=== PATIENT | female | born 1990 | race Caucasian/White ===

== ENCOUNTER → 2020-11-21 | Day surgery (SDC) | payer OTHER ==
[2020-11-21 09:41] VITALS: RESP 16
[2020-11-21 12:18] VITALS: BP 112/72; PULSE 56; TEMP 98.1
--- NOTE | 2020-11-21 19:43 | USB ---
EXAMINATION TYPE: US biopsy breast VAD RT, US biopsy breast VAD LT US biopsy breast add'l VAD LT DATE OF EXAM: 11/21/2020 CLINICAL HISTORY: 30-year-old female R92.8 Abnormal Mammogram. TECHNIQUE: Ultrasound guided core biopsy of the bilateral breasts. COMPARISON: 07/23/2020 FINDINGS: The procedure of ultrasound guided core biopsy was explained to the patient. Benefits, alt ernatives, and risks were discussed. An informed consent was then obtained. The patient's prior ultrasound is reviewed. Multiple lesions are present most of which represent cyst s. The 10:00 dominant hypoechoic lesion in the right breast is targeted. Subsequently, the mixed lesion in the 2:00 left breast is targeted. Finally, the round hypoechoic lesion at the 11:00 position in the left breast is targeted. The patient was placed in supine positioning for imaging and for the procedure. The overlying skin w as prepped and draped in usual sterile fashion. Lidocaine was used as anesthetic into the skin and s ubcutaneous tissue up to area of concern in each breast internal. SITE 1: RIGHT 10:00, hypoechoic: Under ultrasound guidance, a 13-gauge vacuum-assisted Mammotome Emma te biopsy gun was used to obtain 2 core samples. The lesion collapsed after the first sampling. This favors a benign debris-filled cyst. Following this, a ribbon clip was left at the site of biopsy. SITE 2: LEFT 2:00, mixed solid cystic: Under ultrasound guidance, a 13-gauge vacuum-assisted Mammotom e Elite biopsy gun was used to obtain 4 core samples. This also collapsed after the first sampling. Following this, a wing clip was left at the site of biopsy. SITE 3: LEFT 11:00, hypoechoic: Under ultrasound guidance, a 13-gauge vacuum-assisted Mammotome Elit e biopsy gun was used to obtain 4 core samples. This last lesion also collapsed after the first sampl ing. Following this, a coil clip was left at the site of biopsy. The patient tolerated the procedure well without any immediate complication. The patient was kept in the radiology department for short stay after the procedure and then discharged home in stable condi tion. Given the apparent cystic nature of all of these lesions and the patient's young age, post biopsy tony mograms are deferred. IMPRESSION: Successful, uncomplicated ultrasound guided core biopsy of the dominant bilateral hypoechoic lesions. Debris-filled cysts are suggested since the lesions collapsed after the first sampling. One site in the right breast in 2 sites in the left breast. Full pathology results to follow. If benign results, six-month follow-up ultrasound can be performed. Routine screening should begin at 40 years of age unless there is a clinical indication to start sooner.
== END ==
LOC: RADUSWWP 09:26
PROVIDERS: ATTEND Surgery
DX: N60.02 Solitary cyst of left breast (principal); N60.01 Solitary cyst of right breast
CPT/HCPCS: 88305; 88342; 88341; 19083 ×2; 19084; A4648; J2001

== ENCOUNTER → 2021-07-03 | Outpatient (CLI) | payer OTHER ==
--- NOTE | 2021-07-03 21:11 | US ---
EXAMINATION TYPE: Transabdominal DATE OF EXAM: 07/03/2021 9:27 AM COMPARISON: NONE CLINICAL HISTORY: Z36.89 CONFIRM GESTATIONAL AGE AND VIABILITY. Viability. No pain, no bleeding. Hx 1 C section. . EXAM PERFORMED: Transabdominal (TA) EXAM MEASUREMENTS: GESTATIONAL AGE / DATING Physician Established: Not yet established. Dates by LMP: (11 weeks/6 days) EDC: 01/16/2022 Dates by First Scan: This is first scan Dates by Current Scan for: (12 weeks/3 days) EDC: 01/12/2022 MATERNAL ANATOMY Uterus: 13.7 x 10.4 x 7.5 cm. Anteverted. Right Ovary: 2.3 x 1.7 x 1.5 cm. Left Ovary: 2.7 x 2.3 x 2.1 c.m. Two anechoic areas seen, larger area seen measures: 1.2 x 1.2 x 1.2 cm. Post CDS / Adnexa: Appear wnl Presence of free fluid: None seen. Presence of corpus luteal cyst: Possible within left ovary, two anechoic areas seen as mentioned abov e. Presence of subchorionic bleed: Complex area seen inferior to gestational sac: 0.7 x 1.9 x 1.6 cm. GESTATION / SURVEY CRL: 5.90 (12 weeks/3 days) Yolk Sac (normal less than 6mm): 6.5 mm. Measures enlarged. Heart Rate: 159 bpm Rhythm: Normal IUP: Viable IUP Nuchal Translucency 10-14wks (normal less than 3mm): Not well seen. Age Appropriate Anatomy Cord Insertion: Not well seen Limbs: Limited due to movement Calvarium: Limited due to movement Date of LMP: 04/11/2021 IMPRESSION: 1. Single intrauterine gestation estimated at 12 weeks 3 days gestation based on crown-rump length. C ardiac activity measures 159 bpm. 2. Note is made of a somewhat large yolk sac during this exam. Close follow-up is recommended. 3. Small subchorionic hemorrhage adjacent to the gestational sac.
== END | disposition home or self-care (01) ==
LOC: RADUSWWP 08:49
PROVIDERS: ATTEND Obstetrics & Gynecology
DX: O20.8 Other hemorrhage in early pregnancy (principal); Z3A.12 12 weeks gestation of pregnancy
CPT/HCPCS: 76801

== ENCOUNTER 2022-01-09 09:46 | Outpatient (CLI) | payer OTHER ==
[2022-01-09 10:50] VITALS: BP 120/77; PULSE 92; RESP 18; TEMP 97.2
--- NOTE | 2022-02-01 07:17 | P.MSEPDOC ---
Presenting Problems - Arrival Data Date of Arrival on Unit: 01/09/22 Time of Arrival on Unit: 09:46 Mode of Transport: Ambulatory - Complaint OB-Reason for Admission/Chief Complaint: Pain Comment: Contractions last night, feeling better today. 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 Review of Systems - Review of Systems Constitutional: No problems Breast: No problems ENT: No problems Cardiovascular: No problems Respiratory: No problems Gastrointestinal: No problems Genitourinary: No problems Musculoskeletal: No problems Neurological: No problems Skin: No problems Vital Signs - Temperature Temperature: 97.2 F Temperature Source: Temporal Artery Scan - Pulse Right Sitting Brachial Pulse Rate: 92 Pulse Assessment Method: Automatic Cuff - Respirations Respiratory Rate: 18 Oxygen Delivery Method: Room Air O2 Sat by Pulse Oximetry: 99 - Blood Pressure Right Arm Sitting Blood Pressure: 120/77 Blood Pressure Mean: 91 Blood Pressure Source: Automatic Cuff Medical Screen Scoring - Cervical Exam Dilation (cm): 0 Effacement (%): 50 Station: -3 - Assessment - Baby A Baseline FHR: 130 Heart Rate - NICHD Category: Category I (Normal) NST: Reactive Physician Notification - Physician Notified Physician Notified Date: 01/09/22 Physician Notified Time: 10:45 Physician: Humble Maloney New Order Received: Yes - Notification Comment Comment: Dc home. Pt to follow up with Dr Vasquez as scheduled. Maternal Triage Index - Maternal Triage Index Presenting for scheduled procedure w/no complaint: No - Stat/Priority 1 Stat Priority 1: No - Urgent/Priority 2 Urgent Priority 2: No - Prompt/Priority 3 Prompt Priority 3: No - Non-Urgent/Priority 4 Non-Urgent Priority 4: Yes Criteria Met for Priority 4: Amnisure neg, cervix closed. Irregular contractions, pt denies pain today - resolved since last night. Disposition - Disposition OB Disposition: Discharge to home Discharge Date: 01/09/22 Discharge Time: 10:49 I agree with the RN Medical Screening Exam: Yes Case reviewed; plan agreed upon as documented in EMR&OBIX.: Yes Diagnosis: FALSE LABOR AT OR AFTER 37 COMPLETED WEEKS OF GESTATION
== END 2022-01-09 10:51 | disposition home or self-care (01) ==
LOC: FBPOP 09:46
PROVIDERS: ATTEND Obstetrics & Gynecology
DX: O47.1 False labor at or after 37 completed weeks of gestation (principal); Z3A.39 39 weeks gestation of pregnancy; Z88.0 Allergy status to penicillin
CPT/HCPCS: 59025; 84112; G0463; 99213

== ENCOUNTER 2022-01-13 10:01 | Inpatient (IN) | payer OTHER ==
[2022-01-13] MEDS ORDERED: ONDANSETRON 4 MG/2 ML VIAL IVP PRN (10:28)
[2022-01-13] MEDS ORDERED: CITRIC ACID-SODIUM CITRATE 15 ML CUP PO ONE (10:28)
[2022-01-13] MEDS ORDERED: METOCLOPRAMIDE 5 MG/ML 2 ML VIAL IVP PRN (10:28)
[2022-01-13] MEDS ORDERED: diphenhydrAMINE 25 MG CAP PO PRN (10:28)
[2022-01-13] MEDS ORDERED: diphenhydrAMINE 50 MG CAP PO PRN (10:28)
[2022-01-13] MEDS ORDERED: ZOLPIDEM 5 MG TAB PO PRN (10:28)
[2022-01-13] MEDS ORDERED: NALOXONE 0.4 MG/ML 1 ML VIAL IV PRN ×2 (10:28→12:23)
[2022-01-13] MEDS ORDERED: diphenhydrAMINE 50 MG/ML 1 ML VIAL IVP PRN ×2 (10:28)
[2022-01-13 11:18] LABS: Basophils % (A) 1 %; Eosinophils # (A) 0.2 k/uL (0-0.7); Eosinophils % (A) 2 %; HCT 31.2 % (34.0-46.0); HGB 11.3 gm/dL (11.4-16.0); Lymphocytes # (A) 1.3 k/uL (1.0-4.8); Lymphocytes % (A) 16 %; MCH 34.2 pg (25.0-35.0); MCHC 36.1 g/dL (31.0-37.0); MCV 94.8 fL (80.0-100.0); Mean Platelet Volume 8.5; Monocytes # (A) 0.4 k/uL (0-1.0); Monocytes % (A) 4 %; Neutrophils # (A) 6.1 k/uL (1.3-7.7); Neutrophils % (A) 75 %; Platelet Count 307 k/uL (150-450); RBC 3.29 m/uL (3.80-5.40); RDW 13.2 % (11.5-15.5); WBC 8.2 k/uL (3.8-10.6)
[2022-01-13] MEDS: LACTATED RINGERS 1,000 ML IV SCH (11:27)
[2022-01-13] MEDS ORDERED: NALBUPHINE 10 MG/ML (1 ML AMP) ONE (12:00)
[2022-01-13] MEDS ORDERED: ePHEDrine 50 MG/ML 1 ML VIAL ONE (12:00)
[2022-01-13] MEDS ORDERED: ONDANSETRON 4 MG/2 ML VIAL ONE (12:00)
[2022-01-13] MEDS ORDERED: MORPHINE SULFATE (PF) 0.3 MG/0.3 ML SYR ONE (12:00)
[2022-01-13] MEDS ORDERED: OXYTOCIN 30 UNITS/500 ML NS BAG IV ONE (12:00)
[2022-01-13] MEDS ORDERED: KETOROLAC 15 MG/ML 1 ML VIAL ONE (12:00)
[2022-01-13] MEDS ORDERED: HYDROmorphone 0.5 MG/0.5 ML SYRINGE IVP PRN (12:23)
--- NOTE | 2022-01-13 12:40 | P.HPOB ---
History of Present Illness H&P Date: 01/13/22 Chief Complaint: repeat low transverse with tubal ligation 32 year old presents at 39 weeks and 4 days for a repeat low transverse C- section with tubal ligation. Patient has been on Lovenox and then heparin for the last few weeks for history of blood clot and MTHFR. Review of Systems All systems: negative Constitutional: Denies chills, Denies fever Eyes: denies blurred vision, denies pain Ears, nose, mouth and throat: Denies headache, Denies sore throat Cardiovascular: Denies chest pain, Denies shortness of breath Respiratory: Denies cough Gastrointestinal: Denies abdominal pain, Denies diarrhea, Denies nausea, Denies vomiting Genitourinary: Denies dysuria, Denies hematuria Musculoskeletal: Denies myalgias Integumentary: Denies pruritus, Denies rash Neurological: Denies numbness, Denies weakness Psychiatric: Denies anxiety, Denies depression Endocrine: Denies fatigue, Denies weight change Past Medical History Past Medical History: No Reported History History of Any Multi-Drug Resistant Organisms: None Reported Past Surgical History: Section Additional Past Surgical History / Comment(s): 10/02/2018 Past Anesthesia/Blood Transfusion Reactions: No Reported Reaction Past Psychological History: No Psychological Hx Reported Smoking Status: Former smoker Past Alcohol Use History: None Reported Past Drug Use History: None Reported - Past Family History Mother Family Medical History: Hyperlipidemia, Hypertension Medications and Allergies Home Medications Medication Instructions Recorded Confirmed Type Heparin Sodium,Porcine [Heparin 50 milliunit SQ BID 01/09/22 01/13/22 History Sodium] Vit No.179/Iron/Folic 1 tab PO DAILY 01/09/22 01/13/22 History [ Tablet] Allergies Allergy/AdvReac Type Severity Reaction Status Date / Time Penicillins Allergy Unknown Verified 01/09/22 09:59 Childhood Exam Osteopathic Statement: *. No significant issues noted on an osteopathic structural exam other than those noted in the History and Physical/Consult. Vital Signs Temp Pulse Resp BP Pulse Ox 01/13/22 10:21 98.5 F 64 16 133/76 98 Intake and Output 01/12/22 01/13/22 01/13/22 22:59 06:59 14:59 Other: Weight 81.193 kg Heart: Regular rate and rhythm Lungs: Clear to auscultation bilaterally Abdomen: Soft, nontender Extremities: Negative Homans sign Results Result Diagrams: 01/13/22 10:50 Abnormal Lab Results - Last 24 Hours (Table) 01/13/22 Range/Units 10:50 RBC 3.29 L (3.80-5.40) m/uL Hgb 11.3 L (11.4-16.0) gm/dL Hct 31.2 L (34.0-46.0) % Assessment and Plan (1) Previous section Current Visit: Yes Status: Acute Code(s): Z98.891 - HISTORY OF UTERINE SCAR FROM PREVIOUS SURGERY SNOMED Code(s): 821123811 (2) History of DVT (deep vein thrombosis) Current Visit: Yes Status: Acute Code(s): Z86.718 - PERSONAL HISTORY OF OTHER VENOUS THROMBOSIS AND EMBOLISM SNOMED Code(s): 123564540 (3) Family planning Current Visit: Yes Status: Acute Code(s): Z30.09 - ENCOUNTER FOR OT GENERAL CNSL AND ADVICE ON CONTRACEPTION SNOMED Code(s): 157167759 Plan: 1. Repeat low transverse with tubal ligation. We will use SCDs today and put her back on her Lovenox tomorrow.
--- NOTE | 2022-01-13 12:43 | P.OP ---
Date of Procedure: 01/13/22 Preoperative Diagnosis: 1. at 39 weeks and 4 days 2. Previous section 3. Family planning Postoperative Diagnosis: 1. at 39 weeks and 4 days 2. Previous section 3. Family planning Procedure(s) Performed: Repeat low transverse with tubal ligation Anesthesia: THOMPSON Surgeon: Kim Vasquez [employer] Signal [employer] Switch Operator #1: Humble Maloney Estimated Blood Loss (ml): 640 IV fluids (ml): 1,000 Urine output (ml): 100 Pathology: other (Segments of bilateral fallopian tubes) Condition: stable Disposition: floor Operative Findings: Viable female, Apgars 9, 9, weight 7 lbs. 8 oz. Normal uterus, tubes, ovaries Description of Procedure: Patient was taken to the operating room where spinal anesthesia was found be adequate. She was prepped and draped in normal sterile fashion in dorsal supine position with a leftward tilt. Pfannenstiel skin incision was made the scalpel and carried through to the underlying layer of fascia with the scalpel. Fascia was incised in midline and carried bilaterally with the Wright scissors. The superior aspect of the fascial incision was grasped with Prashant clamps elevated and the underlying rectus muscles dissected off with the Wright's. Attention was then turned to inferior aspect of same incision which in a similar fashion was grasped tented up and the underlying rectus muscles dissected off with the Wright's. The rectus muscles were the midline and the peritoneum was identified tented up and entered sharply with the scalpel. The incision was extended superiorly and inferiorly with good visualization of the bladder. The bladder blade was inserted and the vesicouterine peritoneum was incised the Metzenbaums then carried bilaterally and bladder flap created digitally. A low transverse incision was then made on the uterus with the scalpel. This was carried bilaterally and digital manner. Infant's head delivered atraumatically, nose and mouth bulb suctioned, cord clamped and cut, handed off to waiting nurses. Apgars 9,9, weight 7 lbs. 8 oz. Placenta delivered manually, intact with three-vessel cord. The uterus is exteriorized and cleared of all clots and debris. The uterine incision was closed with 0 Vicryl in a running locked fashion. The left fallopian tube was grasped with a hemostat and a window was made in the mesosalpinx with the Bovie. This fallopian tube was doubly ligated, segment was removed and the pedicles were cauterized with the Bovie. The right fallopian tube was grasped with a hemostat and a window was made in the mesosalpinx with the Bovie. This fallopian tube was doubly ligated, segment was removed and the pedicles were cauterized with the Bovie. Both ovaries and tubes appeared normal. The uterus was placed back into the abdomen. The peritoneum was reapproximated using 2-0 Vicryl in a running fashion. The muscles were reapproximated using 2-0 Vicryl in interrupted fashion. The fascia was reapproximated using 0 Vicryl in a running fashion. The subcutaneous tissues closed with 3-0 Vicryl running fashion. The skin was closed gertrudis. Patient tolerated the procedure well, sponge and instrument counts were correct times 2 and she was taken to the recovery room in stable condition.
[2022-01-13] MEDS: KETOROLAC 15 MG/ML 1 ML VIAL IVP PRN (18:33)
[2022-01-14] MEDS: SENNOSIDES-DOCUSATE SODIUM 1 EACH TAB PO SCH ×3 (02:39→19:34)
[2022-01-14] MEDS: LACTATED RINGERS 1,000 ML IV SCH ×3 (02:39→20:31)
--- NOTE | 2022-01-14 06:34 | P.PN ---
Progress Note - Text Progress Note Date: 01/14/22 POD 1 c section with duramorph spinal. Doing well, pain 03/11. no pruritis, able to ambulate, micturate and passing gas. no lower ext weakness. doing well.
[2022-01-14] MEDS: KETOROLAC 15 MG/ML 1 ML VIAL IVP PRN (07:49)
--- NOTE | 2022-01-14 08:36 | P.PNOBGPC ---
Subjective - Subjective Principal diagnosis: Status post repeat low transverse postop day 1 Interval history: Patient seen and examined. Denies nausea, vomiting, chest pain, shortness of breath or calf pain. Patient reports: Reports appetite normal, Reports voiding normally, Reports pain well controlled, Reports ambulating normally : doing well Objective - Vital Signs Latest vital signs: Vital Signs Temp Pulse Resp BP Pulse Ox 01/14/22 07:53 98.4 F 68 16 114/70 97 01/14/22 04:00 97.9 F 64 16 133/74 98 01/14/22 00:00 97.7 F 72 16 132/82 98 01/13/22 20:00 97.8 F 69 16 127/79 99 01/13/22 17:00 16 01/13/22 16:00 97.2 F L 74 16 141/76 01/13/22 15:23 16 01/13/22 14:40 72 16 127/75 98 01/13/22 14:10 71 16 122/73 98 01/13/22 13:40 64 16 135/73 98 01/13/22 13:25 71 16 135/73 97 01/13/22 13:13 97 01/13/22 13:12 16 97 01/13/22 13:10 73 16 116/69 97 01/13/22 12:55 76 16 124/75 98 01/13/22 12:40 96.8 F L 73 16 117/71 98 01/13/22 10:21 98.5 F 64 16 133/76 98 Intake and Output 01/13/22 01/14/22 01/14/22 22:59 06:59 14:59 Intake Total 500 Output Total 700 Balance 500 -700 Intake: IV 500 Output: Urine 700 Uretheral ([place]) 400 Other: Voiding Method Indwelling Catheter - Exam Lungs: bilateral: normal Chest: Normal S1, Normal S2 Extremities: Present: normal Abdomen: Present: normal appearance, soft. Absent: distention, tenderness Incision: Present: normal, dry, intact Uterus: Present: normal, firm - Labs Labs: Abnormal Lab Results - Last 24 Hours (Table) 01/13/22 Range/Units 10:50 RBC 3.29 L (3.80-5.40) m/uL Hgb 11.3 L (11.4-16.0) gm/dL Hct 31.2 L (34.0-46.0) % Assessment and Plan (1) Previous section Current Visit: Yes Status: Resolved Code(s): Z98.891 - HISTORY OF UTERINE SCAR FROM PREVIOUS SURGERY SNOMED Code(s): 874658537 (2) History of DVT (deep vein thrombosis) Current Visit: Yes Status: Resolved Code(s): Z86.718 - PERSONAL HISTORY OF O THER VENOUS THROMBOSIS AND EMBOLISM SNOMED Code(s): 199397487 (3) Family planning Current Visit: Yes Status: Resolved Code(s): Z30.09 - ENCOUNTER FOR OT GENERAL CNSL AND ADVICE ON CONTRACEPTION SNOMED Code(s): 162823264 Plan: 1. Increase ambulation 2. Oral pain meds
[2022-01-14 08:46] LABS: Basophils % (A) 0 %; Eosinophils # (A) 0.1 k/uL (0-0.7); Eosinophils % (A) 1 %; HGB 10.2 gm/dL (11.4-16.0); Lymphocytes # (A) 1.3 k/uL (1.0-4.8); Lymphocytes % (A) 11 %; MCH 34.2 pg (25.0-35.0); MCHC 36.2 g/dL (31.0-37.0); MCV 94.5 fL (80.0-100.0); Mean Platelet Volume 9.2; Monocytes # (A) 0.5 k/uL (0-1.0); Monocytes % (A) 4 %; Neutrophils # (A) 9.7 k/uL (1.3-7.7); Neutrophils % (A) 82 %; Platelet Count 274 k/uL (150-450); RBC 2.96 m/uL (3.80-5.40); RDW 13.2 % (11.5-15.5); WBC 11.8 k/uL (3.8-10.6)
[2022-01-14] MEDS: ACETAMINOPHEN TAB 500 MG TAB PO SCH ×2 (12:56→19:33)
[2022-01-14] MEDS: IBUPROFEN 600 MG TAB PO SCH (15:46)
[2022-01-14] MEDS: SIMETHICONE 80 MG CHEWABLE PO SCH (17:21)
[2022-01-14 19:41] VITALS: RESP 16
[2022-01-15] MEDS: SIMETHICONE 80 MG CHEWABLE PO SCH ×3 (01:51→08:04)
[2022-01-15] MEDS: ACETAMINOPHEN TAB 500 MG TAB PO SCH ×2 (01:51→06:29)
[2022-01-15] MEDS: IBUPROFEN 600 MG TAB PO SCH ×3 (01:52→08:04)
[2022-01-15 02:00] VITALS: PULSE 63
[2022-01-15] MEDS: SENNOSIDES-DOCUSATE SODIUM 1 EACH TAB PO SCH (08:04)
[2022-01-15 08:10] VITALS: BP 124/75; TEMP 97.9
--- NOTE | 2022-01-15 08:35 | P.DS ---
Providers Date of admission: 01/13/22 10:01 Expected date of discharge: 01/15/22 Attending physician: Kim Vasquez Primary care physician: Stated None - Discharge Diagnosis(es) (1) Previous section Current Visit: Yes Status: Resolved (2) History of DVT (deep vein thrombosis) Current Visit: Yes Status: Resolved (3) Family planning Current Visit: Yes Status: Resolved (4) S/P repeat low transverse Current Visit: Yes Status: Acute (5) Status post tubal ligation at time of delivery, current hosp Current Visit: Yes Status: Acute Hospital Course: Patient presented for repeat low transverse and tubal ligation. She underwent this procedure without complication. Postoperative course was uneventful. She denies nausea, vomiting, chest pain, shortness of breath or any calf pain. Patient will be discharged home postoperative day #2 in stable condi tion on Lovenox to follow-up with me in one week. Plan - Discharge Summary New Discharge Prescriptions: New Enoxaparin [Lovenox] 40 mg SQ DAILY #30 each Ibuprofen [Motrin] 600 mg PO Q6H #30 tab oxyCODONE HCL [OxyIR] 5 mg PO Q4HR PRN #18 tab PRN Reason: Pain Scale 4 - 6 No Action Heparin Sodium,Porcine [Heparin Sodium] 50 milliunit SQ BID Vit No.179/Iron/Folic [ Tablet] 1 tab PO DAILY Discharge Medication List Heparin Sodium,Porcine [Heparin Sodium] 50 milliunit SQ BID 01/09/22 [History] Vit No.179/Iron/Folic [ Tablet] 1 tab PO DAILY 01/09/22 [History] Enoxaparin [Lovenox] 40 mg SQ DAILY #30 each 01/15/22 [Rx] Ibuprofen [Motrin] 600 mg PO Q6H #30 tab 01/15/22 [Rx] oxyCODONE HCL [OxyIR] 5 mg PO Q4HR PRN #18 tab 01/15/22 [Rx] Follow up Appointment(s)/Referral(s): Kim Vasquez DO [Doctor of Osteopathic Medicine] - 01/20/22 10:45 am (PP 02/27/2022 @1045) Discharge Disposition: HOME SELF-CARE
== END 2022-01-15 11:00 | disposition home or self-care (01) | DRG 785 ==
LOC: 4FBP 10:01
PROVIDERS: ADMIT Obstetrics & Gynecology; ATTEND Obstetrics & Gynecology
PROC: 0UB70ZZ Excision of Bilateral Fallopian Tubes, Open Approach (ICD-10-PCS; 2022-01-13)
PROC: 10D00Z1 Extraction of Products of Conception, Low, Open Approach (ICD-10-PCS; principal; 2022-01-13 12:00)
DX: O34.211 Maternal care for low transverse scar from previous cesarean delivery (principal); Z30.2 Encounter for sterilization; Z37.0 Single live birth; Z3A.39 39 weeks gestation of pregnancy; Z86.718 Personal history of other venous thrombosis and embolism; Z87.891 Personal history of nicotine dependence; Z14.8 Genetic carrier of other disease; Z88.0 Allergy status to penicillin
CPT/HCPCS: 85025; 86850; 86900; 86901; 88302

== ENCOUNTER 2022-01-19 09:28 | Inpatient (IN) | payer OTHER ==
[2022-01-19 10:05] LABS: Basophils % (A) 1 %; Eosinophils # (A) 0.2 k/uL (0-0.7); Eosinophils % (A) 4 %; HCT 33.2 % (34.0-46.0); HGB 11.3 gm/dL (11.4-16.0); Lymphocytes # (A) 1.5 k/uL (1.0-4.8); Lymphocytes % (A) 23 %; MCH 32.7 pg (25.0-35.0); MCHC 34.1 g/dL (31.0-37.0); MCV 95.7 fL (80.0-100.0); Mean Platelet Volume 8.4; Monocytes # (A) 0.3 k/uL (0-1.0); Monocytes % (A) 5 %; Neutrophils # (A) 4.2 k/uL (1.3-7.7); Neutrophils % (A) 65 %; Platelet Count 383 k/uL (150-450); RBC 3.47 m/uL (3.80-5.40); WBC 6.5 k/uL (3.8-10.6)
[2022-01-19 10:14] LABS: ALT 26 U/L (4-34); AST 29 U/L (14-36); African American GFR (CKD) >90 (>60 ml/min/1.73 sqM); Blood Urea Nitrogen 11 mg/dL (7-17); LDH 826 U/L (313-618); Non-African American GFR(CKD) >90 (>60 ml/min/1.73 sqM)
[2022-01-19 10:15] LABS: Appearance,Urine Clear (Clear); Bilirubin,Urine Negative (Negative); Blood,Urine Negative (Negative); Color,Urine Light Yellow; Glucose,Urine (UA) Negative (Negative); Ketones,Urine Negative (Negative); Leukocyte Esterase,Urine Negative (Negative); Nitrite,Urine Negative (Negative); PH, Urine 7.5 (5.0-8.0); Protein,Urine Trace (Negative); Specific Gravity,Urine 1.009 (1.001-1.035); Urobilinogen,Urine <2.0 mg/dL (<2.0)
[2022-01-19 10:25] LABS: Creatinine,Urine Random 61.5 mg/dL; Protein/Creatinine Ratio,Urine 0.439
[2022-01-19] MEDS ORDERED: CALCIUM GLUCONATE 1 GM/10 ML VIAL IV PRN (10:52)
[2022-01-19] MEDS ORDERED: MAGNESIUM SULFATE-WATER PMX 4 GM in WATER FOR INJECTION 1 100ML.BAG IVPB ONE (11:15)
[2022-01-19] MEDS: LACTATED RINGERS 1,000 ML IV SCH (11:24)
[2022-01-19] MEDS: MAGNESIUM SULFATE-WATER PMX 20 GM in WATER FOR INJECTION 1 500ML.BAG IV SCH ×2 (11:30→21:42)
[2022-01-19] MEDS: IBUPROFEN 600 MG TAB PO PRN (16:03)
--- NOTE | 2022-01-19 16:08 | P.HPOB ---
History of Present Illness H&P Date: 01/19/22 Chief Complaint: Headache 32 year old presents 6 days after a repeat low transverse . She is complaining of a headache for the last 2 days. The headache is occipital, no blurred vision, did have some RUQ pain yesterday. Upon presentation her BP is elevated. She also has an elevated PC ratio, and LDH. Review of Systems All systems: negative Constitutional: Denies chills, Denies fever Eyes: denies blurred vision, denies pain Ears, nose, mouth and throat: Reports headache, Denies sore throat Cardiovascular: Denies chest pain, Denies shortness of breath Respiratory: Denies cough Gastrointestinal: Denies abdominal pain, Denies diarrhea, Denies nausea, Denies vomiting Genitourinary: Denies dysuria, Denies hematuria Musculoskeletal: Denies myalgias Integumentary: Denies pruritus, Denies rash Neurological: Denies numbness, Denies weakness Psychiatric: Denies anxiety, Denies depression Endocrine: Denies fatigue, Denies weight change Past Medical History Past Medical History: No Reported History History of Any Multi-Drug Resistant Organisms: None Reported Past Surgical History: Section Additional Past Surgical History / Comment(s): 10/02/2018 Past Anesthesia/Blood Transfusion Reactions: No Reported Reaction Smoking Status: Never smoker - Past Family History Mother Family Medical History: Hyperlipidemia, Hypertension Medications and Allergies Home Medications Medication Instructions Recorded Confirmed Type Enoxaparin [Lovenox] 40 mg SQ DAILY #30 each 01/15/22 01/19/22 Rx Ibuprofen [Motrin] 600 mg PO Q6H #30 tab 01/15/22 01/19/22 Rx Allergies Allergy/AdvReac Type Severity Reaction Status Date / Time Penicillins Allergy Unknown Verified 01/19/22 09:43 Childhood Exam Osteopathic Statement: *. No significant issues noted on an osteopathic structural exam other than those noted in the History and Physical/Consult. Vital Signs Temp Pulse Resp BP Pulse Ox 01/19/22 15:00 97.7 F 49 L 18 136/79 97 01/19/22 14:00 56 L 16 133/91 99 01/19/22 13:00 45 L 16 142/72 100 01/19/22 11:55 46 L 151/88 01/19/22 11:40 43 L 157/90 01/19/22 11:25 43 L 16 150/85 99 01/19/22 11:21 40 L 01/19/22 11:10 38 L 16 159/86 100 01/19/22 10:47 97.6 F 39 L 16 159/86 99 Intake and Output 01/19/22 01/19/22 01/19/22 06:59 14:59 22:59 Output Total 800 525 Balance -800 -525 Output: Urine 800 525 Other: Weight 79.651 kg HEart: RRR Lungs: CTAB Abdomen: soft, nontender Extremeties: neg gerardo's Results Result Diagrams: 01/19/22 09:55 01/19/22 09:55 Abnormal Lab Results - Last 24 Hours (Table) 01/19/22 01/19/22 01/19/22 Range/Units 09:55 09:55 10:04 RBC 3.47 L (3.80-5.40) m/uL Hgb 11.3 L (11.4-16.0) gm/dL Hct 33.2 L (34.0-46.0) % Lactate Dehydrogenase 826 H (313-618) U/L Urine Protein Trace H (Negative) Assessment and Plan (1) S/P repeat low transverse Current Visit: No Status: Acute Code(s): Z98.891 - HISTORY OF UTERINE SCAR FROM PREVIOUS SURGERY SNOMED Code(s): 396333426 (2) Pre-eclampsia Current Visit: Yes Status: Acute Code(s): O14.90 - UNSPECIFIED PRE- ECLAMPSIA, UNSPECIFIED TRIMESTER SNOMED Code(s): 907290340 Plan: 1. admit to [facility] 2. mag sulfate with 4 gram bolus and 2 grams/hr 3. monitor output and BP 4. seizure precautions 5. bedrest 6. continue lovenox 4mg qhs
[2022-01-19 16:10] VITALS: RESP 16
[2022-01-19] MEDS ORDERED: ENOXAPARIN 40 MG/0.4 ML SYRINGE SQ SCH (21:00)
[2022-01-20] MEDS: LACTATED RINGERS 1,000 ML IV SCH (00:38)
[2022-01-20] MEDS: IBUPROFEN 600 MG TAB PO PRN (01:22)
[2022-01-20] MEDS: MAGNESIUM SULFATE-WATER PMX 20 GM in WATER FOR INJECTION 1 500ML.BAG IV SCH (07:52)
--- NOTE | 2022-01-20 08:55 | P.PNOBGPC ---
Subjective - Subjective Principal diagnosis: Status post repeat low transverse postop day #7 Interval history: Patient presented to the hospital yesterday with signs of preeclampsia. Her headache is much improved today she is having a little bit of blurry vision. She's been magnesium sulfate for almost 24 hours her output is excellent and her blood pressure is coming down. Patient reports: Reports appetite normal, Reports voiding normally, Reports pain well controlled, Reports ambulating normally Objective - Vital Signs Latest vital signs: Vital Signs Temp Pulse Resp BP Pulse Ox 01/20/22 08:00 97.7 F 65 122/89 100 01/20/22 06:51 98.1 F 67 16 149/83 97 01/20/22 06:00 98.4 F 62 16 134/82 96 01/20/22 05:00 98.1 F 51 L 16 147/84 96 01/20/22 03:55 97.9 F 58 L 16 144/79 100 01/20/22 03:00 97.6 F 59 L 16 160/85 100 01/20/22 02:00 62 16 159/90 99 01/20/22 01:45 163/85 01/20/22 01:00 97.7 F 63 16 160/94 100 01/20/22 00:00 97.6 F 53 L 16 138/86 97 01/19/22 23:00 97.5 F L 63 16 138/83 94 L 01/19/22 22:00 97.7 F 54 L 16 145/79 97 01/19/22 21:00 97.6 F 53 L 16 138/82 95 01/19/22 19:48 51 L 16 138/78 97 01/19/22 19:00 58 L 16 139/82 99 01/19/22 18:00 59 L 16 145/78 99 01/19/22 17:00 58 L 16 136/80 98 01/19/22 16:00 16 147/84 98 01/19/22 15:00 97.7 F 53 L 16 136/79 97 01/19/22 14:00 56 L 16 133/91 99 01/19/22 13:00 45 L 16 142/72 100 01/19/22 11:55 46 L 151/88 01/19/22 11:40 43 L 157/90 01/19/22 11:25 43 L 16 150/85 99 01/19/22 11:21 40 L 01/19/22 11:10 38 L 16 159/86 100 01/19/22 10:47 97.6 F 39 L 16 159/86 99 Intake and Output 01/19/22 01/20/22 01/20/22 22:59 06:59 14:59 Intake Total 1560 500 Output Total 3100 3100 900 Balance -1540 -3100 -400 Intake: Intake, IV Titration 600 500 Amount Magnesium Sulfate-Water 500 500 Pmx 20 gm In Water For Injection 1 500ml.bag @ 2 GM/HR 50 mls/hr IV .Q10H CARL Rx#:[id number] Magnesium Sulfate-Water 100 Pmx 4 gm In Water For Injection 1 100ml.bag @ 300 mls/hr IVPB ONCE ONE Rx#:[id number] Oral 960 Output: Urine 3100 3100 900 Other: # Voids 1 0 - Exam Lungs: bilateral: normal Chest: Normal S1, Normal S2 Extremities: Present: normal Abdomen: Present: normal appearance, soft. Absent: distention, tenderness Incision: Present: normal, dry, intact Uterus: Present: normal, firm - Labs Labs: Abnormal Lab Results - Last 24 Hours (Table) 01/19/22 01/19/22 01/19/22 Range/Units 09:55 09:55 10:04 RBC 3.47 L (3.80-5.40) m/uL Hgb 11.3 L (11.4-16.0) gm/dL Hct 33.2 L (34.0-46.0) % Lactate Dehydrogenase 826 H (313-618) U/L Urine Protein Trace H (Negative) Assessment and Plan (1) S/P repeat low transverse Current Visit: No Status: Acute Code(s): Z98.891 - HISTORY OF UTERINE SCAR FROM PREVIOUS SURGERY SNOMED Code(s): 668901046 (2) Pre-eclampsia Current Visit: Yes Status: Acute Code(s): O14.90 - UNSPECIFIED PRE- ECLAMPSIA, UNSPECIFIED TRIMESTER SNOMED Code(s): 077212283 Plan: 1. Discontinue the magnesium sulfate 11 AM 2. Continue to take blood pressures every 2 hours 3. We'll add oral medications if necessary
[2022-01-20] MEDS: LABETALOL 200 MG TAB PO SCH ×2 (11:33→20:04)
[2022-01-20] MEDS ORDERED: ENOXAPARIN 40 MG/0.4 ML SYRINGE SQ SCH (21:00)
--- NOTE | 2022-01-21 08:35 | P.PNOBGPC ---
Subjective - Subjective Principal diagnosis: Status post repeat low transverse postop day #8 Interval history: Patient was readmitted with preeclampsia 2 days ago. She was put on magnesium sulfate for 24 hours and did diurese well and her blood pressures came down. After the magnesium sulfate was discontinued her blood pressures increased again and she was probably will 200 mg twice a day. Her blood pressures have still been up and down but she is feeling much better and no symptoms. I will at her cardiac 30 XL today to see if that can help stabilize her blood pressures. Patient reports: Reports appetite normal, Reports voiding normally, Reports pain well controlled, Reports ambulating normally, Denies dizzy ambulation, Denies nauseated Objective - Vital Signs Latest vital signs: Vital Signs Temp Pulse Resp BP Pulse Ox 01/21/22 08:00 97.7 F 76 16 144/85 99 01/21/22 06:00 99.1 F 54 L 16 160/80 97 01/21/22 04:00 99.0 F 60 16 157/82 96 01/21/22 02:24 98.1 F 59 L 16 142/74 96 01/21/22 02:00 59 L 16 01/21/22 00:00 98.2 F 58 L 16 158/80 97 01/20/22 22:00 98.8 F 72 16 142/84 01/20/22 20:00 99.0 F 61 16 156/77 99 01/20/22 18:00 98.8 F 56 L 149/75 01/20/22 16:00 98.4 F 52 L 160/78 01/20/22 14:00 98.3 F 61 150/77 01/20/22 12:00 98.2 F 51 L 16 138/77 97 01/20/22 11:00 97.1 F L 56 L 16 156/84 99 01/20/22 10:00 98.1 F 60 155/85 97 01/20/22 09:00 98.0 F 55 L 147/76 100 Intake and Output 01/20/22 01/21/22 01/21/22 22:59 06:59 14:59 Output Total 500 Balance -500 Output: Urine 500 Other: # Voids 1 1 1 - Exam Lungs: bilateral: normal Chest: Normal S1, Normal S2 Extremities: Present: normal Abdomen: Present: normal appearance, soft. Absent: distention, tenderness Incision: Present: normal, dry, intact Uterus: Present: normal, firm Assessment and Plan (1) S/P repeat low transverse Current Visit: No Status: Acute Code(s): Z98.891 - HISTORY OF UTERINE SCAR FROM PREVIOUS SURGERY SNOMED Code(s): 352714400 (2) Pre-eclampsia Current Visit: Yes Status: Acute Code(s): O14.90 - UNSPECIFIED PRE- ECLAMPSIA, UNSPECIFIED TRIMESTER SNOMED Code(s): 273584664 Plan: 1. Add Procardia 30 XL to the already dosed labetalol 200 mg twice daily
[2022-01-21] MEDS ORDERED: NIFEdipine XL 30 MG TAB.ER.24 PO SCH (09:00)
[2022-01-21] MEDS: LABETALOL 200 MG TAB PO SCH (09:13)
[2022-01-21] MEDS ORDERED: SENNOSIDES-DOCUSATE SODIUM 1 EACH TAB PO SCH (09:15)
--- NOTE | 2022-01-21 12:33 | P.DS ---
Providers Date of admission: 01/19/22 10:54 Expected date of discharge: 01/21/22 Attending physician: Kim Vasquez Primary care physician: Stated None - Discharge Diagnosis(es) (1) S/P repeat low transverse Current Visit: No Status: Acute (2) Pre-eclampsia Current Visit: Yes Status: Acute Hospital Course: PT presented 6 days po from a C/S with pre-eclampsia. She was treated with magnesium sulfate for 24 hours and when he BPs were still elevated she was placed on labetalol 200mg bid and procardia 30xl. this is maintaining her BPs in a normal range. She is no longer having any symptoms. She will be discharged home today to follow up with me in 1 week. Plan - Discharge Summary New Discharge Prescriptions: New NIFEdipine XL [Procardia XL] 30 mg PO DAILY #30 tab Labetalol [Trandate] 200 mg PO BID #60 tab No Action Enoxaparin [Lovenox] 40 mg SQ DAILY #30 each Ibuprofen [Motrin] 600 mg PO Q6H #30 tab Discharge Medication List Enoxaparin [Lovenox] 40 mg SQ DAILY #30 each 01/15/22 [Rx] Ibuprofen [Motrin] 600 mg PO Q6H #30 tab 01/15/22 [Rx] Labetalol [Trandate] 200 mg PO BID #60 tab 01/21/22 [Rx] NIFEdipine XL [Procardia XL] 30 mg PO DAILY #30 tab 01/21/22 [Rx] Follow up Appointment(s)/Referral(s): Kim Vasquez DO [Doctor of Osteopathic Medicine] - 1 Week Discharge Disposition: HOME SELF-CARE
[2022-01-21 14:06] VITALS: BP 142/77; PULSE 96; TEMP 98.1
== END 2022-01-21 12:11 | disposition home or self-care (01) | DRG 776 ==
LOC: FBPOP 09:28 → OBSVTOIN 10:54 → 4FBP 10:54
PROVIDERS: ADMIT Obstetrics & Gynecology; ATTEND Obstetrics & Gynecology
DX: O14.95 Unspecified pre-eclampsia, complicating the puerperium (principal); Z98.891 History of uterine scar from previous surgery; Z88.0 Allergy status to penicillin
CPT/HCPCS: 81003; 82565; 82570; 83615; 84156; 84450; 84460; 84520; 84550; 85025; 99215